=== PATIENT | male | born 1980 | race Caucasian/White ===

== ENCOUNTER → 2016-12-17 | Outpatient (CLI) | payer BC ==
--- NOTE | 2016-12-17 12:41 | DI ---
RIGHT WRIST, 12/17/2016 12:09 PM: Clinical History: Right wrist pain. Previous Exam: None at this facility. 3 views are submitted. There is no acute soft tissue, osseous, or joint abnormality. Reading: Normal right wrist exam.
--- NOTE | 2016-12-17 12:45 | DI ---
RIGHT HAND, 12/17/2016 12:09 PM: Clinical History: Right hand pain. Previous Exam: None at this facility. 3 views are submitted. There is no fracture or dislocation. There may be soft tissue swelling along t he dorsomedial surface of the metacarpal bones as well as in the index finger. No radiopaque foreign body or soft tissue gas is present. Reading: There is no fracture or dislocation. No radiopaque foreign body or soft tissue gas is present.
== END ==
LOC: MOB RAD 12:12
PROVIDERS: ATTEND Physician Assistant
DX: M79.641 Pain in right hand (principal); M25.531 Pain in right wrist; X50.0XXA Overexertion from strenuous movement or load, initial encounter; Y93.H3 Activity, building and construction; Y92.89 Other specified places as the place of occurrence of the external cause; Y99.0 Civilian activity done for income or pay
CPT/HCPCS: 73110; 73130